=== PATIENT | male | born 1965 | race Caucasian/White ===

== ENCOUNTER 2018-03-11 13:30 | Day surgery (SDC) | payer BC ==
[2018-03-11] MEDS ORDERED: PROPOFOL 20 ML ×2 (15:02→15:50)
[2018-03-11] MEDS ORDERED: FENTAnyl 50 MCG/ML VIAL (15:02)
[2018-03-11] MEDS ORDERED: hydrALAzine 20 MG INJ (15:10)
== END 2018-03-11 16:15 | disposition home or self-care (01) ==
LOC: GIL 13:30
DX: Z12.11 Encounter for screening for malignant neoplasm of colon (principal); K64.8 Other hemorrhoids; K29.70 Gastritis, unspecified, without bleeding; F17.210 Nicotine dependence, cigarettes, uncomplicated
CPT/HCPCS: 43235